=== PATIENT | female | born 1955 | race Caucasian/White ===

== ENCOUNTER 2017-07-20 08:14 | Inpatient (IN) | payer OTHER ==
[~2017-07-20] VITALS: Ht 180.3 cm; Wt 70.0 kg
[2017-07-20] MEDS ORDERED: METFORMIN500 M1 PO (08:51)
[2017-07-20] MEDS ORDERED: MONTELUKAST SOD10 MG PO (08:52)
[2017-07-20] MEDS ORDERED: INDERAL10 M1 PO (08:53)
[2017-07-20] MEDS ORDERED: XANAX0.25 MG PO (08:54)
[2017-07-20] MEDS ORDERED: BREO ELLIPTA1 INH (08:54)
[2017-07-20] MEDS ORDERED: PHENTERMINE37.5 MG PO (08:54)
[2017-07-20] MEDS ORDERED: PROAIR HFA IN (08:54)
[2017-07-20 09:21] LABS: URINE BILIRUBIN - DIPSTICK NEGATIVE (NEGATIVE); URINE BLOOD DIPSTICK NEGATIVE (NEGATIVE); URINE CLARITY CLEAR; URINE COLOR YELLOW; URINE GLUCOSE - DIPSTICK NEGATIVE (NEGATIVE); URINE KETONE NEGATIVE (NEGATIVE); URINE NITRITE - DIPSTICK NEGATIVE (Negative); URINE PH 5.5 (4.5-8.0); URINE PROTEIN - DIPSTICK NEGATIVE (NEG-TRACE); URINE SPECIFIC GRAVITY 1.025; URINE UROBILINOGEN - DIPSTICK 0.2 E.U./dL (0.2)
[2017-07-20 09:22] LABS: URINE LEUK ESTERASE TRACE (NEGATIVE)
[2017-07-20 10:22] LABS: BILIRUBIN, TOTAL 0.9 mg/dL (0.0-1.4); CREATININE 1.5 mg/dL (0.5-1.0); POTASSIUM 4.1 mmol/l (3.5-5.1); TOTAL PROTEIN 6.7 g/dL (6.3-8.2)
[2017-07-20 10:32] LABS: HEMATOCRIT 50.5 % (37.0-47.0); IMMATURE GRANULOCYTES 0.3 % (0.0-1.0); MEAN CELL VOLUME 88.4 fL CALC (80.0-100.0); MEAN CORPUSCULAR HGB 29.8 pG CALC (26.0-32.0); MEAN CORPUSCULAR HGB CONC 33.7 g/L CALC (32.0-36.0); NEUT# 3.45 thou/uL (2.00-7.15); RED BLOOD COUNT 5.71 mill/uL (4.20-5.60)
[2017-07-20 10:32] LABS: CALCIUM 15.7 mg/dL (8.4-10.2)
[2017-07-20 10:36] LABS: MAGNESIUM 2.1 mg/dL (1.6-2.3)
[2017-07-20 10:51] LABS: TSH, 3RD GENERATION 1.6 uIU/mL (0.47 - 4.68)
[2017-07-20 12:59] LABS: BARBITURATES NEGATIVE (NEGATIVE); COCAINE NEGATIVE (NEGATIVE); METHADONE NEGATIVE (NEGATIVE); OXCYCODONE NEGATIVE (NEGATIVE); TETRAHYDROCANNABIONOL NEGATIVE (NEGATIVE); TRICYLIC ANTIDEPRESSANTS NEGATIVE (NEGATIVE)
[2017-07-20 13:10] VITALS: BP 183/95
[2017-07-20 16:29] VITALS: BP 151/90
[2017-07-20 16:48] LABS: CREATININE 1.4 mg/dL (0.5-1.0); POTASSIUM 3.3 mmol/l (3.5-5.1)
[2017-07-20 16:50] LABS: CALCIUM 13.6 mg/dL (8.4-10.2)
[2017-07-20 19:10] VITALS: BP 142/89
[2017-07-20 23:52] VITALS: BP 144/78
[2017-07-21 05:20] VITALS: BP 144/77
[2017-07-21 05:52] LABS: HEMATOCRIT 40.3 % (37.0-47.0); HEMOGLOBIN 13.7 g/dl (12.0-16.0); IMMATURE GRANULOCYTES 0.2 % (0.0-1.0); MEAN CORPUSCULAR HGB 30.2 pG CALC (26.0-32.0); NEUT# 2.24 thou/uL (2.00-7.15); RED BLOOD COUNT 4.53 mill/uL (4.20-5.60)
[2017-07-21 05:56] LABS: MAGNESIUM 1.9 mg/dL (1.6-2.3)
[2017-07-21 05:58] LABS: ALBUMIN 3.2 g/dL (3.2-5.0); CALCIUM 12.8 mg/dL (8.4-10.2); CREATININE 1.2 mg/dL (0.5-1.0); POTASSIUM 3.5 mmol/l (3.5-5.1)
[2017-07-21 08:05] VITALS: BP 143/82
[2017-07-21 11:21] VITALS: BP 156/87
[2017-07-21 15:17] VITALS: BP 148/76
[2017-07-21 19:35] VITALS: BP 152/74
[2017-07-21 22:00] VITALS: BP 136/80
[2017-07-22 05:33] VITALS: BP 151/90
[2017-07-22 05:49] LABS: HEMATOCRIT 39.1 % (37.0-47.0); HEMOGLOBIN 13.2 g/dl (12.0-16.0); IMMATURE GRANULOCYTES 0.2 % (0.0-1.0); MEAN CELL VOLUME 89.7 fL CALC (80.0-100.0); MEAN CORPUSCULAR HGB 30.3 pG CALC (26.0-32.0); MEAN CORPUSCULAR HGB CONC 33.8 g/L CALC (32.0-36.0); NEUT# 1.95 thou/uL (2.00-7.15); RED BLOOD COUNT 4.36 mill/uL (4.20-5.60); RED CELL DISTRI WIDTH 13.1 % (11.5-15.5)
[2017-07-22 06:02] LABS: CALCIUM 11.9 mg/dL (8.4-10.2); CREATININE 1.3 mg/dL (0.5-1.0); MAGNESIUM 1.7 mg/dL (1.6-2.3); POTASSIUM 3.4 mmol/l (3.5-5.1)
[2017-07-22 10:26] VITALS: BP 137/81
[2017-07-22 14:44] VITALS: BP 135/81
[2017-07-22 19:15] VITALS: BP 142/86
[2017-07-22 23:40] VITALS: BP 104/59; BP 112/67
[2017-07-23 04:09] VITALS: BP 132/82
[2017-07-23 05:56] LABS: HEMATOCRIT 39.3 % (37.0-47.0); HEMOGLOBIN 13.4 g/dl (12.0-16.0); IMMATURE GRANULOCYTES 0.2 % (0.0-1.0); MEAN CELL VOLUME 89.5 fL CALC (80.0-100.0); MEAN CORPUSCULAR HGB 30.5 pG CALC (26.0-32.0); MEAN CORPUSCULAR HGB CONC 34.1 g/L CALC (32.0-36.0); NEUT# 2.26 thou/uL (2.00-7.15); RED BLOOD COUNT 4.39 mill/uL (4.20-5.60); RED CELL DISTRI WIDTH 13.2 % (11.5-15.5)
[2017-07-23 06:04] LABS: ANION GAP 14 (6-22 (CALC)); BUN 17 mg/dL (8-23); BUN/CREATININE RATIO 17 (12-20 (CALC)); CALCIUM 11.7 mg/dL (8.4-10.2); CARBON DIOXIDE 25 mmol/l (22-30); CHLORIDE 110 mmol/l (95-108); GFR 56 ML/MIN (>=60 (CALC)); GFR FOR AFR.AMER. > 60 ML/MIN (>=60 (CALC)); GLUCOSE 89 mg/dL (82-115); MAGNESIUM 1.7 mg/dL (1.6-2.3); POTASSIUM 3.3 mmol/l (3.5-5.1); SODIUM 145 mmol/l (137-146)
[2017-07-23 08:50] VITALS: BP 156/69
[2017-07-23 11:15] VITALS: BP 166/88
[2017-07-23 11:29] VITALS: BP 156/69
[2017-07-23] MEDS ORDERED: ADALAT CC/P30 MG/TA1 PO (12:37)
== END 2017-07-23 16:09 | disposition home or self-care (01) | DRG 641 ==
LOC: ED 08:14 → ED-I 11:07 → ED 11:49 → MS2 11:50
PROVIDERS: Emergency Medicine; Internal Medicine Nephrology; Nurse Practitioner Family; ADMIT Internal Medicine; ATTEND Internal Medicine
PROC: 3E0234Z Introduction of Serum, Toxoid and Vaccine into Muscle, Percutaneous Approach (ICD-10-PCS; principal; 2017-07-21)
DX: E83.52 Hypercalcemia (principal); N17.9 Acute kidney failure, unspecified; I10 Essential (primary) hypertension; E11.9 Type 2 diabetes mellitus without complications; F32.9 Major depressive disorder, single episode, unspecified; E78.5 Hyperlipidemia, unspecified; E86.0 Dehydration; N63.0 Unspecified lump in unspecified breast; Z23 Encounter for immunization; E87.6 Hypokalemia; Z79.84 Long term (current) use of oral hypoglycemic drugs; F10.10 Alcohol abuse, uncomplicated
CPT/HCPCS: J3489; Q9967

== ENCOUNTER 2020-08-07 19:48 | Emergency (ER) | payer OTHER ==
[~2020-08-07] VITALS: Ht 170.2 cm; Wt 75.0 kg
[~2020-08-07 19:48] MED LIST: ADALAT CC/P30 MG/TA1 PO; BREO ELLIPTA1 INH; INDERAL10 M1 PO; METFORMIN500 M1 PO; MONTELUKAST SOD10 MG PO; PHENTERMINE37.5 MG PO; PROAIR HFA IN; XANAX0.25 MG PO
[2020-08-07] MEDS ORDERED: INDERAL 40MG TA40 MG PO (20:24)
[2020-08-07 21:47] VITALS: BP 111/77
== END 2020-08-07 21:53 | disposition home or self-care (01) | DRG 605 ==
LOC: ED 19:48
DX: S00.03XA Contusion of scalp, initial encounter (principal); E11.9 Type 2 diabetes mellitus without complications; F17.200 Nicotine dependence, unspecified, uncomplicated; W10.9XXA Fall (on) (from) unspecified stairs and steps, initial encounter; Y92.008 Other place in unspecified non-institutional (private) residence as the place of occurrence of the external cause; Z79.84 Long term (current) use of oral hypoglycemic drugs

== ENCOUNTER 2023-04-14 07:47 | Day surgery (SDC) | payer MEDICARE ==
[~2023-04-14] VITALS: Ht 170.2 cm; Wt 75.9 kg
[~2023-04-14 07:47] MED LIST changes: +ALPRAZOLAM0.25 MG PO; +AZELASTINE HCL0.1 %; +BUSPIRONE10 MG PO; +FLUOXETINE40 MG PO; +INDERAL 40MG TA40 MG PO; +METFORMIN HCL500 M1 PO; +OMEGA 3-6-9 COMPLEX PO; +ROSUVASTATIN CAL5 MG PO; +TRAZODONE50 MG PO; +VENTOLIN HFA108 MCG; +[UNRECOGNIZED DRUG - CODE] PO
[2023-04-14 09:59] VITALS: BP 153/92
== END 2023-04-14 09:50 | disposition home or self-care (01) ==
LOC: ENDO 07:47
PROVIDERS: ATTEND Surgery
PROC: 0DJD8ZZ Inspection of Lower Intestinal Tract, Via Natural or Artificial Opening Endoscopic (ICD-10-PCS; principal; 2023-04-14)
DX: Z12.11 Encounter for screening for malignant neoplasm of colon (principal); K64.8 Other hemorrhoids; E11.9 Type 2 diabetes mellitus without complications; J45.909 Unspecified asthma, uncomplicated; F41.9 Anxiety disorder, unspecified; F32.A Depression, unspecified

== ENCOUNTER 2024-11-24 11:48 | Emergency (ER) | payer MEDICARE ==
[~2024-11-24] VITALS: Ht 170.2 cm; Wt 77.0 kg
[2024-11-24] MEDS ORDERED: IBUPROFEN 800 MG/TAB PO ONE (12:10)
[2024-11-24] MEDS ORDERED: traMADol HCL 50 MG/TAB PO ONE (12:10)
[2024-11-24 12:18] VITALS: BP 111/74
[2024-11-24 12:31] VITALS: BP 139/70
[2024-11-24 12:45] VITALS: BP 149/76
[2024-11-24 13:01] VITALS: BP 147/78
[2024-11-24 13:15] VITALS: BP 148/78
[2024-11-24 13:28] VITALS: BP 148/78
[2024-11-24] MEDS ORDERED: TRAMADOL HYDROC50 M1 PO (13:31)
[2024-11-24] MEDS ORDERED: NABUMETONE750 MG PO (13:31)
== END 2024-11-24 13:49 | disposition home or self-care (01) ==
LOC: ED 11:48
DX: M19.012 Primary osteoarthritis, left shoulder (principal); E11.9 Type 2 diabetes mellitus without complications; I10 Essential (primary) hypertension; F41.9 Anxiety disorder, unspecified; F32.A Depression, unspecified; Z79.84 Long term (current) use of oral hypoglycemic drugs; Z72.0 Tobacco use